=== PATIENT | male | born 1940 | race Caucasian/White ===

== ENCOUNTER 2025-06-12 08:42 | Outpatient (CLI) | payer MEDICARE, BC, SELFPAY ==
--- NOTE | 2025-06-12 10:34 | P.ANES_ITS ---
Anesthesia Charges Start Date/Time Anesthesia Start Date: 06/12/25 Anesthesia Start Time: 09:59 Stop Date/Time Anesthesia Stop Date: 06/12/25 Anesthesia Stop Time: 10:31 Summary Extremes of Age - Over 70 or under 1: GRADUATE STUDIES DEAN Coding CPT Codes CPT Codes: ANES LWR INTST NDSC NOS - [id number] ([id number]) P3 - PATIENT W/SEVERE SYS DISEASE, QK - FURNITURE MECHANIC 2-4 CNCRNT ANES PROC, QX - GRADUATE STUDIES DEAN SVC W/ MD MED DIRECTION Additional Codes: Summary - Extremes of Age - Over 70 or under 1: GRADUATE STUDIES DEAN ([id number])
--- NOTE | 2025-06-12 10:34 | W.ANESCHARGE ---
Anesthesia Charges Start Date/Time Anesthesia Start Date: 06/12/25 Anesthesia Start Time: 09:59 Stop Date/Time Anesthesia Stop Date: 06/12/25 Anesthesia Stop Time: 10:31 Summary Extremes of Age - Over 70 or under 1: SEED BUYER Coding CPT Codes CPT Codes: ANES LWR INTST NDSC NOS - [id number] ([id number]) P3 - PATIENT W/SEVERE SYS DISEASE, QK - LOOM MECHANIC 2-4 CNCRNT ANES PROC, QX - SEED BUYER SVC W/ MD MED DIRECTION Additional Codes: Summary - Extremes of Age - Over 70 or under 1: SEED BUYER ([id number])
--- NOTE | 2025-06-12 10:35 | P.ANES_ITS ---
Anesthesia Charges Start Date/Time Anesthesia Start Date: 06/12/25 Anesthesia Start Time: 09:59 Stop Date/Time Anesthesia Stop Date: 06/12/25 Anesthesia Stop Time: 10:31 Summary Extremes of Age - Over 70 or under 1: MDA Coding CPT Codes CPT Codes: ANES LWR INTST NDSC NOS - [id number] ([id number]) QK - BOILING HOUSE HAND 2-4 CNCRNT ANES PROC, QX - DESIGN CONSULTANT SVC W/ MD MED DIRECTION, P3 - PATIENT W/SEVERE SYS DISEASE Additional Codes: Summary - Extremes of Age - Over 70 or under 1: MDA ([id number])
== END 2025-06-12 08:43 | disposition home or self-care (01) ==
LOC: OP CLINIC 08:46
PROVIDERS: PCP Family Medicine; Visit Provider Internal Medicine Gastroenterology
DX: Z12.11 Encounter for screening for malignant neoplasm of colon (principal); D12.2 Benign neoplasm of ascending colon; D12.4 Benign neoplasm of descending colon; Z86.0101 Personal history of adenomatous and serrated colon polyps
CPT/HCPCS: 00811; 00812; 45380; 45385; 99100; J2704